=== PATIENT | female | born 1950 | race Caucasian/White ===

== ENCOUNTER 2019-07-19 19:18 | Emergency (ER) | payer MEDICARE ==
[~2019-07-19] VITALS: Ht 167.6 cm; Wt 68.5 kg
[2019-07-19 19:55] LABS: BASO % 0.2 % (0.0-1.0); EOS # 0.3 10*3/uL (0.0-0.4); EOS % 1.7 % (1.0-4.0); HEMATOCRIT 28.2 % (37.0-47.0); HEMOGLOBIN 8.5 g/dl (12.0-16.0); LYMPH # 1.2 10*3/uL (1.3-4.4); LYMPH % 7.5 % (27.0-41.0); MEAN CELL VOLUME 80.3 fl (81.0-99.0); MEAN CORPUSCULAR HGB 24.2 pg (27.0-31.0); MEAN CORPUSCULAR HGB CONC 30.1 g/dl (33.0-37.0); MEAN PLATELET VOLUME 10.7 fl (9.6-12.3); MONO # 1.3 10*3/uL (0.1-1.0); MONO % 8.3 % (3.0-9.0); NEUT # 13.2 10*3/uL (2.3-7.9); NEUT % 81.9 % (47.0-73.0); NUCLEATED RED BLOOD CELL 0.1 % (0.0-0.0); PLATELET COUNT AUTOMATED 658 10*3/uL (130-400); RED BLOOD COUNT 3.51 10*6/uL (4.10-5.10); RED CELL DISTRI WIDTH 19.4 % (0-14.5); WHITE BLOOD COUNT 16.2 10*3/uL (4.8-10.8)
[2019-07-19 20:08] LABS: ACT PARTIAL THROMBO TIME 36.3 SECONDS (20.0-32.1); INTERNATIONAL NORM RATIO 1.1 (2.0-3.5)
[2019-07-19 20:13] LABS: ALBUMIN 2.6 gm/dl (3.1-4.5); ALKALINE PHOSPHATASE 98 U/L (45-117); BUN 15 mg/dl (7-24); CHLORIDE 105 mmol/L (98-107); CREATININE 0.75 mg/dL (0.55-1.02); POTASSIUM 3.4 mmol/L (3.5-5.1); SGOT/AST 16 IU/L (3-35); SGPT/ALT 18 U/L (12-78); SODIUM 135 mmol/L (136-145); TOTAL PROTEIN 7.2 gm/dL (6.4-8.2)
[2019-07-19 20:14] LABS: TROPONIN I < 0.015 ng/ml (<0.045)
[2019-07-19] MEDS ORDERED: VISTARIL25 MG PO (23:30)
== END 2019-07-20 00:14 | disposition home or self-care (01) ==
LOC: ED 19:18
PROVIDERS: Emergency Medicine Emergency Medical Services
DX: F41.1 Generalized anxiety disorder (principal); F43.0 Acute stress reaction; R06.00 Dyspnea, unspecified; I10 Essential (primary) hypertension; E07.9 Disorder of thyroid, unspecified; Z88.8 Allergy status to other drugs, medicaments and biological substances

== ENCOUNTER 2020-02-02 23:52 | Inpatient (IN) | payer MEDICARE ==
[~2020-02-02] VITALS: Ht 160 cm; Wt 55.4 kg
[~2020-02-02 23:52] MED LIST: ALLERGY RELIEF25 MG PO; B-121000 MCG PO; CARTIA XT180 MG PO; COMPAZINE10 M1 PO; ENOXAPARIN60 MG/0.2 SC; GAS RELIEF 8080 MG PO; METOPROLOL SUC100 M2 PO; MOMETASONE FURO17 GM NAS; MONTELUKAST SOD10 MG PO; OXTELLAR PO; OXYCODONE HCL10 M1 PO; PEPCID AC20 MG PO; PRAVACHOL20 MG PO; PROZAC20 MG PO; STOOL SOFTENER100 M3 PO; SYNTHROID137 MCG PO; VISTARIL25 MG PO; ZEJULA PO
[2020-02-03] VITALS (9 sets, daily range): BP systolic 123–151; BP diastolic 69–88
[2020-02-03 00:52] LABS: HEMATOCRIT 26.8 % (37.0-47.0); MEAN CORPUSCULAR HGB 27.2 pg (27.0-31.0); MEAN CORPUSCULAR HGB CONC 32.8 g/dl (33.0-37.0); NUCLEATED RED BLOOD CELL 0.6 10*3/uL (0.0-0.0); NUCLEATED RED BLOOD CELL 19.7 % (0.0-0.0); PLATELET COUNT AUTOMATED 271 10*3/uL (130-400); RED BLOOD COUNT 3.23 10*6/uL (4.10-5.10); RED CELL DISTRI WIDTH 23.7 % (0-14.5); WHITE BLOOD COUNT 2.9 10*3/uL (4.8-10.8)
[2020-02-03 01:08] LABS: ALBUMIN 2.2 gm/dl (3.1-4.5); ALKALINE PHOSPHATASE 236 U/L (45-117); BUN 12 mg/dl (7-24); CHLORIDE 93 mmol/L (98-107); CREATININE 0.91 mg/dL (0.55-1.02); LIPASE 80 U/L (73-393); POTASSIUM 2.8 mmol/L (3.5-5.1); SGOT/AST 26 IU/L (3-35); SGPT/ALT 24 U/L (12-78); SODIUM 130 mmol/L (136-145); TOTAL PROTEIN 6.4 gm/dL (6.4-8.2)
--- NOTE | 2020-02-03 01:09 | NUR ---
Pt has colostomy present with stoma site that is pink and brown stool noted in bag.
[2020-02-03 01:17] LABS: BURR CELLS FEW; PLATELET SUFFICIENCY NORMAL (NORMAL); POLYCHROMASIA SLIGHT; TOTAL CELLS COUNTED 100 #CELLS
--- NOTE | 2020-02-03 01:30 | NUR ---
Pt turned at this time and was incontient of urine x1 per pt she always leaks.
--- NOTE | 2020-02-03 02:01 | NUR ---
Iv attempt x2 by me and one by Gildardo graves and unable to place at this time.
--- NOTE | 2020-02-03 02:10 | NUR ---
Ok to place ng to low continous per .
--- NOTE | 2020-02-03 02:29 | NUR ---
Per pt she has no open wounds.Pt is alert and orientated.Pt did have healing abrashions noted to buttock area and redness noted to toes which is normal per pt.
--- NOTE | 2020-02-03 03:00 | NUR ---
Pt states pain is much better at this time and now currently at a 2.
--- NOTE | 2020-02-03 03:02 | NUR ---
Ng tube placedin left nare.Good air bolus heard at this time.Ng then placed on low continous suction.Brown drainage noted from ng and about 400cc back at this time.
--- NOTE | 2020-02-03 03:10 | NUR ---
Ok to use ng at this time per and ok to go room,Ng clamped for transport.
--- NOTE | 2020-02-03 03:15 | NUR ---
Time: 314 A 69 year old FEMALE admitted to under services of [place] PRICE DO. Pt. arrived via bed from ER. Chief complaint: ILEUS. DALIA GALAVIZ
--- NOTE | 2020-02-03 03:34 | NUR ---
[facility] NOTIFIED OF PATIENT ADMISSION AT THIS TIME.
[2020-02-03] MEDS ORDERED: DULCOLAX5 M1 PO (03:50)
--- NOTE | 2020-02-03 03:55 | NUR ---
MED REC UPDATED PER LIST PROVIDED BY [facility]
--- NOTE | 2020-02-03 04:45 | NUR ---
CALLED DR. OSWALD MADE AWARE HOME MEDICATION NEEDED ORDERED AND WAS REVIEWED. PER DR. OSWALD OK TO LEAVE NG TO [facility].
--- NOTE | 2020-02-03 05:30 | NUR ---
RESTING IN BED. NG TUBE IN PLACE TO LIS. NO C/O AT THIS TIME. CALL LIGHT IN REACH. BED ALARM ON.
--- NOTE | 2020-02-03 05:41 | NUR ---
CALLED DR. CROWLEY MADE AWARE OF CONSULT. HE WILL SEE HER THIS AM.
--- NOTE | 2020-02-03 07:41 | NUR ---
PHYSICAL THERAPY Screen and PT eval received will follow thank you Emili Redman PT
--- NOTE | 2020-02-03 07:48 | NUR ---
24 HR chart check completed.
--- NOTE | 2020-02-03 08:01 | NUR ---
Occupational therapy order and nursing screen received. Will follow up with patient for completion of an OT evaluation. Thank you. Deborah Tanner, OTR/L
--- NOTE | 2020-02-03 08:16 | NUR ---
MEDICATED WITH PO NORCO ORDERED PER PT REQUEST FOR C/O DIFFUSE ABDOMINAL PAIN RATED 8/10.
--- NOTE | 2020-02-03 08:37 | NUR ---
MEDICATED WITH IV BENEDRYL ORDERED PT PER REQUEST FOR C/O NAUSEA.
--- NOTE | 2020-02-03 09:30 | NUR ---
MEDICATION EFFECTIVE FOR NAUSEA.
--- NOTE | 2020-02-03 09:45 | NUR ---
PAIN MEDICATION EFFECTIVE.
--- NOTE | 2020-02-03 10:33 | NUR ---
RESIDENT NOTIFIED OF CONCERN OVER BILAT DVTS FROM LAST ADM WITH TEDS ON PT. THEY WILL REASSESS FOR LOVENOX AFTER GI BLEED STATUS IS DETERMINED.
--- NOTE | 2020-02-03 11:00 | NUR ---
PHYSICAL THERAPY Attempted to see pt at the bedside for evaluation currently out of the room for abdominal series to further assess SBO. Pt also with possible GI bleed. Discussed with nsg reg PT, per nsg currently off anticoagulant with possible GI bleed and pt w recent dx of BLE DVT's at discharge on 01/31 did not want pt mobilized at this time until further testing performed and medical status stable. Deferred therapy at this time as per nsg, to follow in the AM as appropriate. Emili Redman PT
--- NOTE | 2020-02-03 11:02 | NUR ---
This nurse went to evaluate patient for skin impairment. Patient is off the floow for testing at this time. Nurse caring for patient will notify this nurse upon patient return
--- NOTE | 2020-02-03 11:10 | NUR ---
OT NOTE Occupational therapy order received. Attempted to see patient this AM however she was out of the room for the abdominal series for SBO. Discussed with nursing in regards to B/L LE DVTs on 01/31 and possible GI bleed. Per nursing, patient is on hold for therapy due to needing further testing prior to OOB activity. Will continue to follow. Deborah Tanner, OTR/L
--- NOTE | 2020-02-03 11:10 | NUR ---
[facility]. She is ok to return when medically stable.
--- NOTE | 2020-02-03 12:09 | NUR ---
SPEECH PATHOLOGY Orders for swallowing evaluation received and chart review completed. Patient is NPO, with NG tube placed. She is currently out of room for a medical procedure. Will attempt assessment, as appropriate, at a later time. Thank you for this referral. BORIS VERNON [facility] OPERATIONS MANAGER
--- NOTE | 2020-02-03 12:41 | NUR ---
MEDICATED WITH IV BENEDRYL ORDERED PER PT REQUEST FOR C/O VOMITING.
[2020-02-03 14:15] LABS: BUN 10 mg/dl (7-24); CHLORIDE 99 mmol/L (98-107); POTASSIUM 3.2 mmol/L (3.5-5.1); SODIUM 134 mmol/L (136-145)
--- NOTE | 2020-02-03 15:00 | NUR ---
MEDICATED WITH IV MORPHINE ORDERED PER PT REQUEST FOR C/O PAIN TO BILAT FEET/FACE FROM NEURALGIA/EPIGASTRIC AREA RATED 8/10.
--- NOTE | 2020-02-03 15:45 | NUR ---
MEDICATION EFFECTIVE FOR PAIN.
--- NOTE | 2020-02-03 17:01 | NUR ---
PROTONIX GIVEN, UNABLE TO DOCUMENT ON EMAR.
--- NOTE | 2020-02-03 20:23 | NUR ---
PT C/O BILATERAL LEG PAIN AND RIGHT SIDE OF FACE PAIN, RATES BOTH AN 8 ON PAIN SCALE 0-10. MEDICATED WITH DILAUDID IV PER PRN ORDER, SEE EMAR. NG TO LIS. IVF INFUSING WITH NO PROBLEM. CALL LIGHT IN REACH. SEE SHIFT ASSESSMENT.
--- NOTE | 2020-02-03 21:20 | NUR ---
PT STATES PAIN MEDICATION HELPED. NO C/O AT THIS TIME. CALL LIGHT IN REACH. BED ALARM ON.
[2020-02-04] VITALS: BP 136/72
--- NOTE | 2020-02-04 01:32 | NUR ---
PT C/O BILATERAL LEG PAIN AND RIGHT SIDE FACE PAIN, RATES PAIN 7 1/2 ON PAIN SCALE 0-10. MEDICATED WITH DILAUDID IV PER PRN ORDER, SEE EMAR.
--- NOTE | 2020-02-04 01:45 | NUR ---
PT TRANPORTED VIA EMS TO [facility]. PT HAS NG TUBE INTACT AND IV LEFT HAND INTACT. REPORT GIVEN TO EMS DRIVERS. DISCHARGE PACKET GIVENT TO ACQUISITION ADVISOR.
--- NOTE | 2020-02-04 02:05 | NUR ---
CALLED PT [facility] PICKED HER UP TO GO TO [facility]/.
--- NOTE | 2020-02-04 02:05 | NUR ---
CALLED BIENVENIDO ROBB AT [facility] MADE AWARE PT WAS ON HER WAY
== END 2020-02-04 03:35 | disposition short-term general hospital (02) | DRG 377 ==
LOC: ED 23:52 → EDHOLD 02-03 02:23 → 4E 02-03 02:23
PROVIDERS: Emergency Medicine; Internal Medicine; ADMIT Internal Medicine; ATTEND Internal Medicine
PROC: 0DH67UZ Insertion of Feeding Device into Stomach, Via Natural or Artificial Opening (ICD-10-PCS; principal; 2020-02-03)
DX: K92.2 Gastrointestinal hemorrhage, unspecified (principal); E43 Unspecified severe protein-calorie malnutrition; K56.50 Intestinal adhesions [bands], unspecified as to partial versus complete obstruction; E87.1 Hypo-osmolality and hyponatremia; I82.409 Acute embolism and thrombosis of unspecified deep veins of unspecified lower extremity; R65.10 Systemic inflammatory response syndrome (SIRS) of non-infectious origin without acute organ dysfunction; R07.89 Other chest pain; E86.0 Dehydration; D64.9 Anemia, unspecified; F41.9 Anxiety disorder, unspecified; E78.5 Hyperlipidemia, unspecified; G62.9 Polyneuropathy, unspecified; I10 Essential (primary) hypertension; D72.810 Lymphocytopenia; E87.8 Other disorders of electrolyte and fluid balance, not elsewhere classified; R73.9 Hyperglycemia, unspecified; R74.8 Abnormal levels of other serum enzymes; Z66 Do not resuscitate; F43.0 Acute stress reaction; Z51.5 Encounter for palliative care; Z88.8 Allergy status to other drugs, medicaments and biological substances; Z88.1 Allergy status to other antibiotic agents; Z91.040 Latex allergy status; Z86.718 Personal history of other venous thrombosis and embolism; Z68.21 Body mass index [BMI] 21.0-21.9, adult; Z85.038 Personal history of other malignant neoplasm of large intestine; Z85.43 Personal history of malignant neoplasm of ovary; Z90.49 Acquired absence of other specified parts of digestive tract; Z93.3 Colostomy status; Z90.721 Acquired absence of ovaries, unilateral; Z90.710 Acquired absence of both cervix and uterus; Z80.8 Family history of malignant neoplasm of other organs or systems

== ENCOUNTER 2020-03-24 18:46 | Emergency (ER) | payer MEDICARE ==
[~2020-03-24] VITALS: Wt 63.5 kg
== END 2020-03-24 22:06 | disposition home or self-care (01) ==
LOC: ED 18:46
DX: E87.6 Hypokalemia (principal); R06.02 Shortness of breath; Z91.040 Latex allergy status; Z88.8 Allergy status to other drugs, medicaments and biological substances; Z79.899 Other long term (current) drug therapy

== ENCOUNTER 2020-04-06 18:33 | Inpatient (IN) | payer MEDICARE ==
[~2020-04-06] VITALS: Ht 167.6 cm; Wt 61.0 kg
[~2020-04-06 18:33] MED LIST changes: +DULCOLAX5 M1 PO
[2020-04-06 18:35] VITALS: BP 131/67
[2020-04-06 19:01] LABS: MEAN CELL VOLUME 109.5 fl (81.0-99.0); MEAN CORPUSCULAR HGB 35.4 pg (27.0-31.0); MEAN CORPUSCULAR HGB CONC 32.4 g/dl (33.0-37.0); MEAN PLATELET VOLUME 10.7 fl (9.6-12.3); NUCLEATED RED BLOOD CELL 17.8 % (0.0-0.0); PLATELET COUNT AUTOMATED 283 10*3/uL (130-400); RED BLOOD COUNT 1.58 10*6/uL (4.10-5.10); RED CELL DISTRI WIDTH 29.7 % (0-14.5); WHITE BLOOD COUNT 5.6 10*3/uL (4.8-10.8)
[2020-04-06 19:06] LABS: HEMATOCRIT 17.3 % (37.0-47.0)
[2020-04-06 19:12] LABS: ACT PARTIAL THROMBO TIME 29.4 SECONDS (20.0-32.1)
[2020-04-06 19:16] LABS: ALBUMIN 1.6 gm/dl (3.1-4.5); ALKALINE PHOSPHATASE 123 U/L (45-117); BUN 27 mg/dl (7-24); CHLORIDE 105 mmol/L (98-107); CREATININE 0.74 mg/dL (0.55-1.02); POTASSIUM 3.6 mmol/L (3.5-5.1); SGOT/AST 16 IU/L (3-35); SGPT/ALT 18 U/L (12-78); SODIUM 137 mmol/L (136-145)
[2020-04-06 19:19] LABS: PLATELET SUFFICIENCY NORMAL (NORMAL); TOTAL CELLS COUNTED 100 #CELLS
[2020-04-06 19:20] LABS: BURR CELLS FEW; TARGET CELLS FEW
[2020-04-06 19:56] VITALS: BP 135/63
[2020-04-06 20:07] VITALS: BP 126/74
[2020-04-06 20:20] VITALS: BP 147/74
[2020-04-06] MEDS ORDERED: LASIX20 MG PO (20:41)
[2020-04-06] MEDS ORDERED: SODIUM CHLORIDE1 GM PO (20:44)
[2020-04-06] MEDS ORDERED: SINGULAIR10 M1 PO (20:46)
[2020-04-06] MEDS ORDERED: TYLENOL EXTRA500 MG PO (20:49)
[2020-04-06] MEDS ORDERED: VITAMIN D350 MCG PO (20:51)
[2020-04-06] MEDS ORDERED: REGLAN10 M1 PO (20:55)
[2020-04-06] MEDS ORDERED: TRAZODONE100 MG PO (22:16)
[2020-04-07] VITALS (18 sets, daily range): BP systolic 93–137; BP diastolic 43–77
[2020-04-07 06:02] LABS: BUN 22 mg/dl (7-24); CHLORIDE 107 mmol/L (98-107); CREATININE 0.67 mg/dL (0.55-1.02); POTASSIUM 3.6 mmol/L (3.5-5.1); SODIUM 138 mmol/L (136-145)
[2020-04-07 06:11] LABS: MEAN CELL VOLUME 111.7 fl (81.0-99.0); MEAN CORPUSCULAR HGB 35.9 pg (27.0-31.0); MEAN CORPUSCULAR HGB CONC 32.1 g/dl (33.0-37.0); MEAN PLATELET VOLUME 11.2 fl (9.6-12.3); NUCLEATED RED BLOOD CELL 18.8 % (0.0-0.0); PLATELET COUNT AUTOMATED 241 10*3/uL (130-400); RED BLOOD COUNT 1.45 10*6/uL (4.10-5.10); RED CELL DISTRI WIDTH 29.5 % (0-14.5); WHITE BLOOD COUNT 5.1 10*3/uL (4.8-10.8)
[2020-04-07 06:19] LABS: HEMATOCRIT 16.2 % (37.0-47.0)
[2020-04-07 07:00] LABS: BASOPHILS 1 % (0-1); PLATELET SUFFICIENCY NORMAL (NORMAL); TOTAL CELLS COUNTED 100 #CELLS
[2020-04-07 07:01] LABS: HOWELL-JOLLY BODIES MODERATE
[2020-04-07 07:02] LABS: ACANTHOCYTES MODERATE; SCHISTOCYTES FEW
[2020-04-07 07:03] LABS: POLYCHROMASIA SLIGHT
[2020-04-07 19:49] LABS: HEMATOCRIT 28.5 % (37.0-47.0); MEAN CORPUSCULAR HGB 32.7 pg (27.0-31.0); MEAN CORPUSCULAR HGB CONC 32.6 g/dl (33.0-37.0); NUCLEATED RED BLOOD CELL 0.8 10*3/uL (0.0-0.0); NUCLEATED RED BLOOD CELL 16.2 % (0.0-0.0); PLATELET COUNT AUTOMATED 182 10*3/uL (130-400); RED BLOOD COUNT 2.84 10*6/uL (4.10-5.10); RED CELL DISTRI WIDTH 21.3 % (0-14.5); WHITE BLOOD COUNT 4.7 10*3/uL (4.8-10.8)
[2020-04-07 20:09] LABS: MEAN CELL VOLUME 100.4 fl (81.0-99.0)
[2020-04-07 20:15] LABS: BASOPHILS 1 % (0-1); TOTAL CELLS COUNTED 100 #CELLS
[2020-04-07 20:17] LABS: BURR CELLS MODERATE; PLATELET SUFFICIENCY NORMAL (NORMAL)
[2020-04-07 21:00] LABS: ALBUMIN 1.6 gm/dl (3.1-4.5); ALKALINE PHOSPHATASE 125 U/L (45-117); BUN 21 mg/dl (7-24); CHLORIDE 106 mmol/L (98-107); CREATININE 0.64 mg/dL (0.55-1.02); POTASSIUM 3.5 mmol/L (3.5-5.1); SGOT/AST 22 IU/L (3-35); SGPT/ALT 17 U/L (12-78); SODIUM 138 mmol/L (136-145)
[2020-04-08 04:00] VITALS: BP 145/82
[2020-04-08 06:25] LABS: HEMATOCRIT 28.3 % (37.0-47.0); MEAN CELL VOLUME 99.6 fl (81.0-99.0); MEAN CORPUSCULAR HGB 32.7 pg (27.0-31.0); MEAN CORPUSCULAR HGB CONC 32.9 g/dl (33.0-37.0); MEAN PLATELET VOLUME 10.9 fl (9.6-12.3); NUCLEATED RED BLOOD CELL 0.8 10*3/uL (0.0-0.0); NUCLEATED RED BLOOD CELL 21.1 % (0.0-0.0); PLATELET COUNT AUTOMATED 182 10*3/uL (130-400); RED BLOOD COUNT 2.84 10*6/uL (4.10-5.10); WHITE BLOOD COUNT 3.7 10*3/uL (4.8-10.8)
[2020-04-08 06:40] LABS: ALBUMIN 1.6 gm/dl (3.1-4.5); BUN 19 mg/dl (7-24); CHLORIDE 108 mmol/L (98-107); CREATININE 0.58 mg/dL (0.55-1.02); POTASSIUM 3.4 mmol/L (3.5-5.1); SGOT/AST 21 IU/L (3-35); SGPT/ALT 19 U/L (12-78); SODIUM 139 mmol/L (136-145); TOTAL PROTEIN 5.3 gm/dL (6.4-8.2)
[2020-04-08 06:41] LABS: ALKALINE PHOSPHATASE 128 U/L (45-117)
[2020-04-08 07:02] LABS: TOTAL CELLS COUNTED 100 #CELLS
[2020-04-08 07:03] LABS: BURR CELLS FEW; HOWELL-JOLLY BODIES FEW; PLATELET SUFFICIENCY NORMAL (NORMAL); SCHISTOCYTES FEW; TARGET CELLS FEW
[2020-04-08 07:04] LABS: ACANTHOCYTES FEW
[2020-04-08 08:00] VITALS: BP 144/74
[2020-04-08 12:00] VITALS: BP 138/72
[2020-04-08 16:00] VITALS: BP 140/84
[2020-04-08 20:00] VITALS: BP 146/83
[2020-04-09] VITALS (7 sets, daily range): BP systolic 133–155; BP diastolic 78–97
[2020-04-09 04:20] LABS: MEAN CELL VOLUME 100.4 fl (81.0-99.0); MEAN CORPUSCULAR HGB 33.1 pg (27.0-31.0); MEAN PLATELET VOLUME 10.7 fl (9.6-12.3); NUCLEATED RED BLOOD CELL 0.6 10*3/uL (0.0-0.0); NUCLEATED RED BLOOD CELL 17.7 % (0.0-0.0); PLATELET COUNT AUTOMATED 143 10*3/uL (130-400); RED BLOOD COUNT 2.69 10*6/uL (4.10-5.10); RED CELL DISTRI WIDTH 22.2 % (0-14.5); WHITE BLOOD COUNT 3.3 10*3/uL (4.8-10.8)
[2020-04-09 04:31] LABS: BUN 14 mg/dl (7-24); CHLORIDE 106 mmol/L (98-107); CREATININE 0.63 mg/dL (0.55-1.02); POTASSIUM 3.3 mmol/L (3.5-5.1); SODIUM 138 mmol/L (136-145)
[2020-04-09 04:44] LABS: PLATELET SUFFICIENCY LOW (NORMAL); TOTAL CELLS COUNTED 100 #CELLS
== END 2020-04-09 16:53 | disposition left against medical advice (07) | DRG 377 ==
LOC: ED 18:33 → ICCU 19:38 → EDHOLD 19:38 → 4E 19:38 → ICCU 04-07 09:26
PROVIDERS: Emergency Medicine; Internal Medicine; Student in an Organized Health Care Education/Training Program; ADMIT Student in an Organized Health Care Education/Training Program; ATTEND Student in an Organized Health Care Education/Training Program
PROC: 30233N1 Transfusion of Nonautologous Red Blood Cells into Peripheral Vein, Percutaneous Approach (ICD-10-PCS; principal; 2020-04-07)
PROC: 0DB68ZX Excision of Stomach, Via Natural or Artificial Opening Endoscopic, Diagnostic (ICD-10-PCS; 2020-04-09)
DX: K92.2 Gastrointestinal hemorrhage, unspecified (principal); E43 Unspecified severe protein-calorie malnutrition; I26.99 Other pulmonary embolism without acute cor pulmonale; R65.10 Systemic inflammatory response syndrome (SIRS) of non-infectious origin without acute organ dysfunction; C56.9 Malignant neoplasm of unspecified ovary; C78.5 Secondary malignant neoplasm of large intestine and rectum; N17.9 Acute kidney failure, unspecified; I82.509 Chronic embolism and thrombosis of unspecified deep veins of unspecified lower extremity; B37.81 Candidal esophagitis; D53.9 Nutritional anemia, unspecified; E03.9 Hypothyroidism, unspecified; E78.5 Hyperlipidemia, unspecified; G62.9 Polyneuropathy, unspecified; I10 Essential (primary) hypertension; D50.0 Iron deficiency anemia secondary to blood loss (chronic); E83.42 Hypomagnesemia; R73.9 Hyperglycemia, unspecified; I27.20 Pulmonary hypertension, unspecified; Z88.8 Allergy status to other drugs, medicaments and biological substances; Z88.1 Allergy status to other antibiotic agents; Z91.040 Latex allergy status; Z90.49 Acquired absence of other specified parts of digestive tract; Z53.29 Procedure and treatment not carried out because of patient's decision for other reasons; Z93.3 Colostomy status; Z90.710 Acquired absence of both cervix and uterus; Z90.721 Acquired absence of ovaries, unilateral; Z85.43 Personal history of malignant neoplasm of ovary; Z90.81 Acquired absence of spleen; Z82.0 Family history of epilepsy and other diseases of the nervous system; Z68.21 Body mass index [BMI] 21.0-21.9, adult